=== PATIENT | male | born 1990 | race Caucasian/White ===

== ENCOUNTER 2017-08-11 23:57 | Emergency (ER) | payer OTHER ==
[2017-08-12] VITALS: BP 140/70; PULSE 91; RESP 16; TEMP 98.7; O2SAT 99
--- NOTE | 2017-08-12 00:10 | PD ---
HPI . Overdose Chief Complaint: OD/ Ingestion Time Seen by Provider: 00:04 Travel History International Travel<30 days: No Contact w/Intl Traveler<30days: No Traveled to known affect area: No History of Present Illness HPI 27-year-old male status post voluntary injection and overdose of opiate substance. EMS responded, noted patient was apneic oxygen saturation approximately 40%. IV is established patient given 0.4 mg of Narcan IV push with subsequent near immediate response patient regained full consciousness breathing on his own oxygen saturation 100% on 2 L nasal cannula. Patient is awake and alert presentation to ED, answering questions voluntarily. Patient notes having used heroin many times prior and having never overdosed. Patient states what he injected may not have been heroin secondary to the overdose response. Patient has no homicidal suicidal ideations. [facility] Past Medical History Narrative Medical Past medical history reviewed Social History Alcohol Use: Yes Tobacco Use: Yes Substance Use: Yes Allergies-Medications (Allergen,Severity, Reaction): Coded Allergies: No Known Allergies (Unverified , 08/12/17) Narrative Medication Allergies and medications reviewed Review of Systems General / Constitutional: No: Fever, Chills Eyes: No: Diploplia, Blurred Vision, Photophobia, Visual changes HENT: No: Headaches, Sore Throat, Neck Stiffness, Neck Pain Cardiovascular: Positive: Syncope, No: Chest Pain or Discomfort, Palpitations, Irregular Rhythm, Tachycardia, Diaphoresis, Phlebitis, Claudication Respiratory: No: Cough, Shortness of Breath, Hemoptysis, Night Sweats, Pleuritic Pain Gastrointestinal: No: Abdominal Pain Genitourinary: No: Dysuria Musculoskeletal: No: Myalgias, Arthralgias, Pain Skin: No Rash Neurologic: No: Weakness, Focal Abnormalities, Tremor, Ataxia Psychiatric: No: Depression, Suicidal Ideations Endocrine: No: Polydipsia Hematologic/Lymphatic: No: Easy Bruising Physical Exam Narrative GENERAL: Awake and alert 3 no acute distress. SKIN: Warm and dry. Color is normal no diaphoresis cyanosis or pallor. No rashes HEAD: Atraumatic. Normocephalic. EYES: Pupils equal and round. No scleral icterus. No injection or drainage. ENT: No nasal bleeding or discharge. Mucous membranes pink and moist. NECK: Trachea midline. No JVD. Supple full range of motion CARDIOVASCULAR: Regular rate and rhythm. No murmurs or gallops RESPIRATORY: No accessory muscle use. Clear to auscultation. Breath sounds equal bilaterally. GASTROINTESTINAL: Abdomen soft, non-tender, nondistended. Hepatic and splenic margins not palpable. MUSCULOSKELETAL: Extremities without clubbing, cyanosis, or edema. No obvious deformities. NEUROLOGICAL: Awake and alert. No obvious cranial nerve deficits. Motor grossly within normal limits. Five out of 5 muscle strength in the arms and legs. Normal speech. PSYCHIATRIC: Appropriate mood and affect; insight and judgment normal. Data Data Orders Orders Naloxone Inj (Narcan Inj) (08/12/17 00:15) [facility] Medical Decision Making Medical Screen Exam Complete: Yes Emergency Medical Condition: Yes Medical Record Reviewed: Yes Differential Diagnosis Accidental overdose Narrative Course Patient observed in ED, no return of respiratory symptoms. Patient given Narcan 4 mg intramuscular depot. Diagnosis Primary Impression: Overdose Qualified Codes: T50.901A - Poisoning by unspecified drugs, medicaments and biological substances, accidental (unintentional), initial encounter Patient Instructions: General Instructions, Opioid Overdose (ED) Additional Instructions: Refrain from using street drugs/narcotics. Follow-up with medical clinic. Return for worsening Disposition: DISCHARGE HOME Condition: Stable Wale Saldivar MD Aug 12, 2017 00:10
[2017-08-12] MEDS ORDERED: NALOXONE HCL 2 MG/2 ML VIAL IM ONE (00:15)
== END 2017-08-12 00:58 | disposition home or self-care (01) ==
LOC: NEPE 23:57
DX: T40.601A Poisoning by unspecified narcotics, accidental (unintentional), initial encounter (principal); Z72.0 Tobacco use
CPT/HCPCS: 96372; 99283; J2310